=== PATIENT | female | born 1960 | race Caucasian/White ===

== ENCOUNTER 2017-03-23 17:26 | Emergency (ER) | payer MEDICAID ==
[~2017-03-23] VITALS: Ht 165.1 cm; Wt 81.0 kg
[~2017-03-23 17:26] MED LIST: ATOR20TA PO; CEPH-571 PO; CLIN150C16 PO; FLUC200T PO; KEP500T PO; LISI40TA4 PO
[2017-03-23 17:32] VITALS: BP 139/102
== END 2017-03-23 20:26 | disposition left against medical advice (07) ==
LOC: ER 17:27
DX: Z76.0 Encounter for issue of repeat prescription (principal); Z53.21 Procedure and treatment not carried out due to patient leaving prior to being seen by health care provider

== ENCOUNTER 2025-02-01 13:35 | Outpatient (CLI) | payer MEDICAID ==
[~2025-02-01 13:35] MED LIST changes: -CLIN150C16 PO; +LISI40TA20 PO; -LISI40TA4 PO; +[UNRECOGNIZED DRUG - CODE] PO
--- NOTE | 2025-02-01 15:10 | RADIOLOGY REPORT ---
Procedure: CT CT CHEST LOW DOSE Reason for study/Clinical History: PERSONAL HISTORY OF NICOTINE DEPENDENCE Comparison Study: None Exam Date: 02/01/2025 02:14 PM TECHNIQUE: Multidetector CT of the chest was performed from the lung apices to the upper abdomen without the use of intravenous contract. Axial, coronal and sagittal multiplanar reformats were performed. Radiation Dose Information: CT Dose: CTDI volume is 25 mGy. Dose-length product is 250 mGy*cm The dose indicators for CT are the volume Computed Tomography (CT) Dose Index (CTDIvol) and the Dose Length Product (DLP), and are measured in units of mGy and mGy-cm, respectively. These indicators are not patient dose, but values generated from the CT scanner acquisition factors. The report includes radiation exposure data for exposures received during this examination. FINDINGS: Lower neck: Normal thyroid. Lungs: Spiculated 13 mm nodule right upper lobe which appears ground-glass and solid, image 95. This represents a 4 a nodule. Additional 4 a nodules are noted measuring 7.1 mm right upper lobe, image 80. PET-CT is recommended. Heart/Vascular Structures: Normal heart size. No pericardial effusion. Lymph Nodes: No adenopathy Pleura: No pleural effusion or significant pneumothorax. Musculoskeletal: No acute osseous abnormality. Soft tissues: Normal. Upper abdomen: Limited portions of the upper abdomen are unremarkable. IMPRESSION: Spiculated 13 mm nodule right upper lobe which appears ground-glass and solid, image 9This represents a 4 a nodule. Additional 4 a nodules are noted measuring 7.1 mm right upper lobe, image 8PET-CT is recommended. Radiation optimization: All CT scans at this facility use at least one of these dose optimization techniques: automated exposure control mA and/or kV adjustment per patient size (includes targeted exams where dose is matched to clinical indication) or iterative reconstruction.
== END 2025-02-01 23:59 | disposition home or self-care (01) ==
LOC: RAD 13:35
PROVIDERS: ATTEND Nurse Practitioner Family
DX: Z12.2 Encounter for screening for malignant neoplasm of respiratory organs (principal); Z87.891 Personal history of nicotine dependence; R91.8 Other nonspecific abnormal finding of lung field
CPT/HCPCS: 71271